=== PATIENT | male | born 1975 | race Asian ===

== ENCOUNTER 2017-04-20 09:54 | Outpatient (CLI) | payer OTHER ==
[2017-04-20 11:06] LABS: Hemoglobin 15.5 g/dL (14.0-18.0); Mean Corpuscular HGB CONC 33.9 g/dL (32.0-36.0); Mean Corpuscular Hemoglobin 32.3 pg (27.0-31.0); Mean Corpuscular Volume 95.1 fl (80.0-94.0); Mean Platelet Volume 8.8 fL (7.4-10.4); Platelet Count 210 thou/uL (130-400); Red Blood Cell (RBC) Count 4.79 mill/uL (4.70-6.10); White Blood Cell (WBC) Count 10.1 thou/uL (4.8-10.8)
[2017-04-20 11:08] LABS: Bilirubin Negative (Negative); Blood, Urine Negative (Negative); Clarity CLEAR (Clear); Glucose, Urine (Dipstick) Negative (Negative); Leukocyte Negative (Negative); Nitrite Negative (Negative); PTT 32.2 SEC (22.9-36.1); Protein, Urine (Dipstick) Negative (Neg-Trace); Prothrombin Time 12.9 SEC (12.0-14.7); Specific Gravity, Urine 1.011 (1.002-1.036); Urobilinogen 0.2 mg/dL (0.2-1.0); pH, Urine 6.5 (5.0-9.0)
[2017-04-20 11:11] LABS: Bacteria/HPF None Seen HPF (None Seen); Hyaline Casts/LPF 0-3 HYALINE CAST LPF (0-3 Hyaline); RBC/HPF 0-3 HPF (0-3); Squamous Epithelial None Seen HPF (0-3); WBC/HPF None Seen HPF (0-3)
[2017-04-20 11:20] LABS: Anion Gap 12 mmol/L (10-20); BUN (Urea Nitrogen) 8 mg/dL (8.9-20.6); Calc. Creatinine Clearance 0 mL/min (70-130); Calcium 9.8 mg/dL (7.8-10.44); Carbon Dioxide 26 mmol/L (22-29); Chloride 105 mmol/L (98-107); Estimated GFR-MDRD Greater than 90; Glucose 95 mg/dL (70-105); Sodium 139 mmol/L (136-145)
--- NOTE | 2017-04-20 21:11 | EKG ---
Test Reason : Blood Pressure : / mmHG Vent. Rate : 065 BPM Atrial Rate : 065 BPM P-R Int : 136 ms QRS Dur : 088 ms QT Int : 376 ms P-R-T Axes : 061 061 063 degrees QTc Int : 391 ms Normal sinus rhythm Normal ECG No previous ECGs available Confirmed by SIS WASHINGTON ([id number]) on 04/20/2017 9:10:50 PM Referred By: MERCEDES Confirmed By:SIS WASHINGTON
== END 2017-04-20 09:55 | disposition home or self-care (01) ==
LOC: LABBT 09:54
PROVIDERS: ATTEND Urology
DX: Z01.810 Encounter for preprocedural cardiovascular examination (principal); Z01.812 Encounter for preprocedural laboratory examination; N49.2 Inflammatory disorders of scrotum
CPT/HCPCS: 80048; 81001; 85027; 85610; 85730; 87086; 93005; 93010

== ENCOUNTER 2017-04-27 10:21 | Day surgery (SDC) | payer OTHER ==
[2017-04-20 10:34] VITALS: BMI 21.4
[2017-04-27] MEDS ORDERED: Bupivacaine 0.25% HCL 30 ML VIAL ONE (10:41)
[2017-04-27] MEDS ORDERED: CEFAZOLIN 1 GM, Syringe 2.5 ML in Sterile Water 7.5 ML SLOW IVP ONE (11:15)
[2017-04-27] MEDS ORDERED: Midazolam HCl 2 mg/2 ml Vial ONE (12:32)
[2017-04-27] MEDS ORDERED: Fentanyl 100 MCG/2 ML VIAL ONE ×2 (12:32→14:26)
[2017-04-27] MEDS ORDERED: Neomycin-Polymyxin 1 ML AMP ONE (12:47)
[2017-04-27] MEDS ORDERED: Sodium Chloride 0.9% 10 ML ONE (12:48)
[2017-04-27] MEDS ORDERED: Bacitracin Zinc Ointment 30 gm TUBE ONE (13:39)
[2017-04-27] MEDS ORDERED: Ondansetron HCl/PF 4 MG/2 ML Vial ONE (14:14)
[2017-04-27] MEDS ORDERED: Dexamethasone 20 MG/5 ML VIAL ONE (14:14)
[2017-04-27] MEDS ORDERED: ePHEDrine/0.9% NaCl/PF SYRINGE 50 mg/10 ml ONE (14:14)
[2017-04-27] MEDS ORDERED: Propofol 200 MG/20 ML VIAL ONE (14:14)
[2017-04-27] MEDS ORDERED: Lidocaine 1% PF 5 ML VIAL ONE (14:14)
[2017-04-27] MEDS ORDERED: Ketorolac Tromethamine 30 MG/ML VIAL ONE (14:14)
--- NOTE | 2017-04-27 14:19 | OP ---
DATE OF SURGERY: 04/27/2017 SERVICE: Urology. SURGEON: Jimmy rOr M.D. PREOPERATIVE DIAGNOSIS: Inflammatory scrotal lesion. POSTOPERATIVE DIAGNOSIS: Inflammatory scrotal lesion. PROCEDURE PERFORMED: Scrotal exploration and debridement. INDICATIONS FOR PROCEDURE: Mr. Lorenzo is a 42-year-old [place] male, who had initially presented to [facility] with an inflammatory lesion in the right lower scrotum. This had been treated with multiple rounds of antibiotics. Attempts at I and D and attempts at anti-inflammatories without any significant res olution of symptoms. He continues to have pain and discomfort at this site and does have purulence w hen the lesion is compressed. He had elected for resection. Risks and benefits of the surgery had b een discussed and he has agreed to proceed forward. DESCRIPTION OF PROCEDURE: After identification of his arm band and verification of consent, patient was brought back to the operating room where he underwent general anesthesia with an LMA. He was the n left in the supine position and prepped and draped in usual sterile fashion. After appropriate jewels eout, the lesion was isolated and the borders of the lesion marked on the skin. A 15-blade was used to make a longitudinal incision directly over the lesion in the longitudinal fashion. Bovie electroc autery was then used to dissect around the lesion into the healthy tissues. This was done circumfere ntially all around the lesion until all of the hardened and thickened tissue was removed. We continu ed to excise tissue until all of the indurated and hard tissue and purulent tissue was removed. The remaining tissue appeared very healthy and appeared normal. Bovie was used to excise almost the enti re lesion. There was no entry below the internal spermatic fascia and the tunica vaginalis and testi caleb were not seen. No muscular fibers were seen. The entire lesion was excised en bloc and split in to 2 specimens. One for fresh specimen to go for tissue culture and the other specimen to go for rou cassie pathologic evaluation in formalin. Meticulous hemostasis was performed of the underlying tissue s. A small incision was made lateral to the main incision for a drain to be placed, as this was like ly infected tissue and I felt that if we closed it, it would likely turn into an abscess. The wound was irrigated thoroughly with approximately half a liter of antibiotic irrigation. Again hemostas is was performed until there was no bleeding noted. The incision was then closed using a 3-0 chromic in a horizontal mattress fashion with a Pablo drain placed into the lateral incision into the empt y space. A 3-0 nylon drain stitch was also used to secure the drain in place. Bacitracin was applie d over the incision and then fluffs applied over the drain and incision with the mesh panties applied over that. The patient was then awakened and taken to PACU for recovery in stable condition. COMPLICATIONS: None. ESTIMATED BLOOD LOSS: Minimal. RETAINED TUBES AND DRAINS: A quarter-inch Pablo drain. SPECIMENS: An infected/inflamed scrotal tissue. DISPOSITION: The patient will be discharged home and follow up with me in approximately 1-2 weeks fo r a postop check. We will go over the pathology results and ensure that he does not have any recurre nce of infection or inflammation.
== END 2017-04-27 16:30 | disposition home or self-care (01) ==
LOC: SDC 10:21
PROVIDERS: ATTEND Urology
PROC: 0VJ80ZZ Inspection of Scrotum and Tunica Vaginalis, Open Approach (ICD-10-PCS; principal; 2017-04-27)
PROC: 0VB50ZZ Excision of Scrotum, Open Approach (ICD-10-PCS; principal; 2017-04-27)
DX: N49.2 Inflammatory disorders of scrotum (principal); F17.210 Nicotine dependence, cigarettes, uncomplicated
CPT/HCPCS: 87070; 87205; 88304; A4216; J0690; J1100; J1885; J2001; J2250; J2405; J2704; J3010; J3370; J3490; S0020